=== PATIENT | female | born 1955 | race Caucasian/White ===

== ENCOUNTER 2017-12-25 21:25 | Outpatient (CLI) | payer MEDICAID | END 2017-12-25 21:26 | disposition critical access hospital (66) | LOC: EMS 21:25 | PROVIDERS: ATTEND Surgery | DX: T42.4X2A Poisoning by benzodiazepines, intentional self-harm, initial encounter (principal); R53.83 Other fatigue | CPT/HCPCS: A0425; A0427 ==

== ENCOUNTER 2017-12-25 22:03 | Emergency (ER) | payer MEDICAID ==
--- NOTE | 2017-12-25 22:25 | ED Physician Documentation ---
PD HPI OVERDOSE - Stated complaint Stated Complaint: OD/SI - Chief complaint Chief Complaint: MHE - History obtained from History obtained from: Patient, EMS - History of Present Illness Timing - onset: Unknown (tonight but uncertain time) Subtance(s) ingested: Single Associated symptoms: Decreased responsiveness Contributing factors: Depresssed Recently seen: Other (unknown (although no previous visits to this ED per [facility])) - Additional information Additional information: brought to ED by ambulance for overdose. Patient arrives drowsy but she is able to answer most of my questions with a very quiet voice that is difficult to hear at times. Patient had told medics she took 60 tablets of valium, but subsequently said it was 30 tablets. On arrival to ED, she tells me she took "a handful" of Valium. She denies taking any other medications. She tells me that she did this because she was upset over an argument she had with her roommate. Review of Systems Unable to obtain: Other (limited due to drowsiness and quiet answers (I have to have her repeat all answers to my questions, sometimes more than once and some answers I still cannot understand despite multiple attempts)) Cardiac: denies: Chest pain / pressure Respiratory: denies: Dyspnea GI: denies: Abdominal Pain Psychiatric: reports: Depressed PD PAST MEDICAL HISTORY - Present Medications Home Medications: Ambulatory Orders Medication Instructions Recorded Confirmed Home Medications Unobtainable 12/25/17 12/25/17 [HOME MEDICATIONS UNOBTAINABLE] - Allergies Allergies/Adverse Reactions: Allergies Allergy/AdvReac Type Severity Reaction Status Date / Time Unable to Assess Allergy Verified 12/25/17 22:18 PD ED PE NORMAL - Vitals Vital signs reviewed: Yes - General General: No acute distress, Well developed/nourished, Other (drowsy but awakens to voice; falls asleep at times during H+P) - HEENT HEENT: Atraumatic, PERRL, EOMI, Moist mucous membranes - Neck Neck: No bony TTP - Cardiac Cardiac: RRR, No murmur - Respiratory Respiratory: No respiratory distress, Clear bilaterally - Abdomen Abdomen: Soft, Non tender - Derm Derm: Normal color, Warm and dry - Neuro Eye Opening: To Voice Motor: Obeys Commands Verbal: Oriented (she does not recall month) GCS Score: 14 Results - Vitals Vitals: Vital Signs - 24 hr 12/25/17 12/25/17 12/25/17 22:05 22:34 23:29 Temperature 36.3 C L Heart Rate 66 57 L 64 Respiratory 18 16 18 Rate Blood Pressure 89/63 L 97/68 94/69 O2 Saturation 98 99 100 12/26/17 12/26/17 12/26/17 00:29 01:42 08:01 Temperature 36.7 C Heart Rate 63 53 L 45 L Respiratory 20 13 16 Rate Blood Pressure 91/63 123/71 131/72 H O2 Saturation 97 99 97 Oxygen O2 Source Room air - EKG (time done) No standard instances Rate: Rate (enter#) (61) Rhythm: NSR Barnum: Normal Intervals: Normal UT QRS: Normal Ischemia: Normal ST segments - Labs Labs: Laboratory Tests 12/25/17 12/25/17 12/25/17 22:58 22:58 22:58 WBC 5.0 RBC 3.95 L Hgb 11.8 L Hct 36.0 L MCV 91.0 MCH 29.9 MCHC 32.9 RDW 12.1 Plt Count 212 MPV 7.9 Neut # 2.9 Lymph # 1.4 L Ble[place] # 0.4 Eos # 0.3 Baso # 0.1 Absolute Nucleated RBC 0.00 Nucleated RBC % 0.0 Sodium 139 Potassium 3.3 L Chloride 104 Carbon Dioxide 29 Anion Gap 6.0 BUN 15 Creatinine 1.1 H Estimated GFR (MDRD) 50 L Glucose 71 Calcium 8.3 L Troponin I < 0.04 Urine Color Urine Clarity Urine pH Ur Specific [place] Urine Protein Urine Glucose (UA) Urine Ketones Urine Occult Blood Urine Nitrite Urine Bilirubin Urine Urobilinogen Ur Leukocyte Esterase Ur Microscopic Review Urine Culture Comments Salicylates < 6.0 Urine Opiates Screen Ur Oxycodone Screen Urine Methadone Screen Ur Propoxyphene Screen Acetaminophen < 10 L Ur Barbiturates Screen Ur Tricyclics Screen Ur Phencyclidine Scrn Ur Amphetamine Screen U Methamphetamines Scrn U Benzodiazepines Scrn Urine Cocaine Screen U Cannabinoids Screen Ethyl Alcohol < 5.0 12/25/17 23:45 WBC RBC Hgb Hct MCV MCH MCHC RDW Plt Count MPV Neut # Lymph # [place] # Eos # Baso # Absolute Nucleated RBC Nucleated RBC % Sodium Potassium Chloride Carbon Dioxide Anion Gap BUN Creatinine Estimated GFR (MDRD) Glucose Calcium Troponin I Urine Color YELLOW Urine Clarity CLEAR Urine pH 5.5 Ur Specific [place] <=1.005 Urine Protein NEGATIVE Urine Glucose (UA) NEGATIVE Urine Ketones NEGATIVE Urine Occult Blood NEGATIVE Urine Nitrite NEGATIVE Urine Bilirubin NEGATIVE Urine Urobilinogen 0.2 (NORMAL) Ur Leukocyte Esterase NEGATIVE Ur Microscopic Review NOT INDICATED Urine Culture Comments NOT INDICATED Salicylates Urine Opiates Screen NEGATIVE Ur Oxycodone Screen NEGATIVE Urine Methadone Screen NEGATIVE Ur Propoxyphene Screen NEGATIVE Acetaminophen Ur Barbiturates Screen NEGATIVE Ur Tricyclics Screen NEGATIVE Ur Phencyclidine Scrn NEGATIVE Ur Amphetamine Screen NEGATIVE U Methamphetamines Scrn NEGATIVE U Benzodiazepines Scrn POSITIVE H Urine Cocaine Screen NEGATIVE U Cannabinoids Screen POSITIVE H Ethyl Alcohol PD MEDICAL DECISION MAKING - ED course Complexity details: reviewed results, re-evaluated patient, considered differential, d/w patient ED course: case signed out to Dr. Leone at 7 AM pending improved mental status for E
[2017-12-25] MEDS ORDERED: SODIUM CHLORIDE 0.9% 1,000 ML IV ONE (22:36)
[2017-12-25 23:08] LABS: BASOPHILS # (AUTO) 0.1 10^3/uL (0.0-0.1); BASOPHILS % (AUTO) 1.4 %; EOSINOPHILS # (AUTO) 0.3 10^3/uL (0.0-0.7); EOSINOPHILS % (AUTO) 5.2 %; HGB - HEMOGLOBIN 11.8 g/dL (12.0-16.0); LYMPHOCYTES # (AUTO) 1.4 10^3/uL (1.5-3.5); LYMPHOCYTES % (AUTO) 28.1 %; MEAN CORPUSCULAR HEMOGLOBIN 29.9 pg (27.0-31.0); MEAN CORPUSCULAR HGB CONC 32.9 g/dL (32.0-36.0); MEAN PLATELET VOLUME 7.9 fL (7.9-10.8); MONOCYTES # (AUTO) 0.4 10^3/uL (0.0-1.0); MONOCYTES % (AUTO) 7.6 %; NEUTROPHILS # (AUTO) 2.9 10^3/uL (1.5-6.6); NEUTROPHILS % (AUTO) 57.7 %; PLT - PLATELET COUNT 212 10^3/uL (130-450); RED BLOOD COUNT 3.95 10^6/uL (4.20-5.40); RED CELL DISTRIBUTION WIDTH 12.1 % (12.0-15.0)
[2017-12-25 23:19] LABS: BUN - BLOOD UREA NITROGEN 15 mg/dL (6-20); CALCIUM 8.3 mg/dL (8.5-10.3); CARBON DIOXIDE - CO2 29 mmol/L (21-32); CHLORIDE 104 mmol/L (101-111); CREATININE 1.1 mg/dL (0.4-1.0); GFR - MDRD 50 (>89); GLUCOSE 71 mg/dL (70-100); SALICYLATE < 6.0 mg/dL; SODIUM 139 mmol/L (135-145)
[2017-12-25 23:20] LABS: ACETAMINOPHEN < 10 ug/mL (10-30)
[2017-12-25 23:49] LABS: MUDS CUTOFF CONCENTRATIONS CUTOFF CONC BELOW:
[2017-12-25 23:56] LABS: BILIRUBIN,URINE NEGATIVE (NEGATIVE); GLUCOSE, URINE (UA) NEGATIVE (NEGATIVE); KETONES,URINE (UA) NEGATIVE (NEGATIVE); LEUKOCYTE ESTERASE, URINE NEGATIVE (NEGATIVE); NITRITE,URINE NEGATIVE (NEGATIVE); OCCULT BLOOD,URINE NEGATIVE (NEGATIVE); PH,URINE 5.5 PH (5.0-7.5); PROTEIN,URINE NEGATIVE (NEGATIVE); UROBILINOGEN,URINE 0.2 (NORMAL) E.U./dL (NORMAL)
[2017-12-26 00:07] LABS: AMPHETAMINE SCREEN,URINE NEGATIVE (NEGATIVE); BENZODIAZEPINES SCREEN, URINE POSITIVE (NEGATIVE); CLARITY,URINE CLEAR (CLEAR); COCAINE SCREEN URINE NEGATIVE (NEGATIVE); METHADONE SCREEN, URINE NEGATIVE (NEGATIVE); METHAMPHETAMINES SCREEN, URINE NEGATIVE (NEGATIVE); OPIATE SCREEN, URINE NEGATIVE (NEGATIVE); OXYCODONE SCREEN, URINE NEGATIVE (NEGATIVE); PROPOXYPHENE SCREEN, URINE NEGATIVE (NEGATIVE); TRICYCLIC ANTIDEPRESSANT,URINE NEGATIVE (NEGATIVE)
[2017-12-26] MEDS ORDERED: OLANZapine 10 MG VIAL IM STA ×2 (00:51→22:35)
[2017-12-26] MEDS ORDERED: LORazepam 2 MG/ML VIAL IVP STA (02:21)
[2017-12-26] MEDS ORDERED: POTASSIUM CHLORIDE 20 MEQ TABLET PO STA (07:06)
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
[2017-12-26] MEDS ORDERED: POTASSIUM BICARB 25 MEQ TABLET PO STA (11:01)
--- NOTE | 2017-12-26 14:38 | XRAY Report ---
EXAM: LEFT SHOULDER RADIOGRAPHY EXAM DATE: 12/26/2017 02:24 PM. CLINICAL HISTORY: Fell out of bed. COMPARISON: None. TECHNIQUE: 2 views. FINDINGS: Bones: No fracture or focal bony lesion. Joints: No evidence of dislocation. Soft Tissues: No unexpected soft tissue findings. IMPRESSION: No evidence of fracture or dislocation. [facility] Referring Provider Line: [phone] SITE ID: [id number]
--- NOTE | 2017-12-26 15:07 | CT Report ---
EXAM: CT CERVICAL SPINE WITHOUT CONTRAST DATE: 12/26/2017 02:49 PM. HISTORY: Fall, pain. COMPARISONS: None. TECHNIQUE: Thin-section axial images were acquired of the cervical spine without contrast. Post-proce ssing: Coronal and sagittal reformats. Other: None. In accordance with CT protocol optimization, one or more of the following dose reduction techniques w ere utilized for this exam: automated exposure control, adjustment of mA and/or KV based on patient s ize, or use of iterative reconstructive technique. FINDINGS: Alignment: No scoliosis or spondylolisthesis. Bones: No fracture or bone lesion. Interspace Levels/Facets: Disk spaces well-preserved. Mild generalized degenerative changes. Musculature: Unremarkable. Other: The paravertebral and prevertebral soft tissues are unremarkable. The lung apices are clear. A zygos lobe. IMPRESSION: No acute disease. [facility] Referring Provider Line: [phone] SITE ID: [id number]
--- NOTE | 2017-12-26 15:09 | CT Report ---
EXAM: CT HEAD EXAM DATE: 12/26/2017 02:49 PM. CLINICAL HISTORY: Fall, confusion. COMPARISON: None. TECHNIQUE: Multiaxial CT images were obtained from the foramen magnum to the vertex. Reformats: Coron al. IV contrast: None. In accordance with CT protocol optimization, one or more of the following dose reduction techniques w ere utilized for this exam: automated exposure control, adjustment of mA and/or KV based on patient s ize, or use of iterative reconstructive technique. FINDINGS: Parenchyma: No intraparenchymal hemorrhage. No evidence of mass, midline shift, or CT findings of inf arction. Marquez-white differentiation is distinct. Extraaxial Spaces: Normal for age. No subdural or epidural collections identified. Ventricles: Normal in size and position. Sinuses and Orbits: Imaged paranasal sinuses, orbits, and mastoids show no significant abnormality. Bones: No evidence of fracture or calvarial defect. Other: There is mild left face soft tissue swelling. IMPRESSION: No acute intracranial CT abnormality. [facility] Referring Provider Line: [phone] SITE ID: [id number]
[2017-12-26] MEDS ORDERED: PANTOPRAZOLE 40 MG TABLET PO STA (21:28)
[2017-12-26] MEDS ORDERED: DICYCLOMINE 10 MG CAPSULE PO STA (21:41)
--- NOTE | 2017-12-26 22:30 | ED Physician Documentation ---
ED Addendum - Addendum Addendum: 12/26/17 22:28 Placed on involuntary hold by Mary Lou MOORE and accepted to [facility] by Michelle PEDRAZA at 2225. Patient transferred. COBRAs filled out. Departure - Departure Disposition: 65 Psych Hosp/Unit DC/Xfer Clinical Impression: Overdose Qualifiers: Encounter type: initial encounter Injury intent: intentional self-harm Qualified Code(s): T50.902A - Poisoning by unspecified drugs, medicaments and biological substances, intentional self-harm, initial encounter Depression Qualifiers: Depression Type: unspecified Qualified Code(s): F32.9 - Major depressive disorder, single episode, unspecified Condition: Stable
[2017-12-26 22:55] VITALS: BP 121/78
== END 2017-12-26 23:40 ==
LOC: EDUNIT# → ED 22:03
DX: T42.4X1A Poisoning by benzodiazepines, accidental (unintentional), initial encounter (principal); F32.9 Major depressive disorder, single episode, unspecified
CPT/HCPCS: 36415; 70450; 72125; 73030; 80048; 80306; 80307; 80320; 80329; 81003; 84484; 85025; 93005; 96361; 96372; 96374; 99285; A9270; J2060; 81001; 87086

== ENCOUNTER 2017-12-26 23:45 | Outpatient (CLI) | payer MEDICAID | END 2017-12-26 23:46 | LOC: EMS 23:45 | PROVIDERS: ATTEND Surgery | DX: R45.1 Restlessness and agitation (principal) | CPT/HCPCS: A0425; A0428 ==